=== PATIENT | female | born 1945 | race African-American/Black ===

== ENCOUNTER 2017-10-06 10:24 | Emergency (ER) | payer MEDICARE, MEDICAID ==
[~2017-10-06] VITALS: Ht 170.2 cm; Wt 90.0 kg
[2017-10-06 10:27] VITALS: BP 123/66
== END 2017-10-06 18:00 | disposition left against medical advice (07) ==
LOC: ER 10:43
DX: Z53.21 Procedure and treatment not carried out due to patient leaving prior to being seen by health care provider (principal)